=== PATIENT | female | born 1995 | race American Indian/Alaskan Native ===

== ENCOUNTER 2017-06-19 19:41 | Emergency (ER) | payer SELFPAY ==
[2017-06-19 20:07] VITALS: BP 103/56
[2017-06-19 20:32] LABS: Basophils # (Auto) 0.1 K/mm3 (0.0-0.1); Basophils % (Auto) 1.2 % (0.0-1.8); Eosinophils # (Auto) 0.1 K/mm3 (0.0-0.4); Eosinophils % (Auto) 1.5 % (0.0-4.3); Hematocrit 38.6 % (30.3-42.9); Hemoglobin 13.4 gm/dl (10.1-14.3); Lymphocytes # (Auto) 2.6 K/mm3 (1.2-5.4); Lymphocytes % (Auto) 39.3 % (13.4-35.0); Mean Corpuscular HGB Conc 35 % (30-34); Mean Corpuscular Hemoglobin 32 pg (28-32); Mean Corpuscular Volume 92 fl (79-97); Monocytes # (Auto) 0.4 K/mm3 (0.0-0.8); Monocytes % (Auto) 5.6 % (0.0-7.3); Platelet Count 380 K/mm3 (140-440); Red Cell Distribution Width 12.3 % (13.2-15.2)
[2017-06-19 20:40] LABS: Alanine Aminotransferase 12 units/L (7-56); Albumin 4.4 g/dL (3.9-5); BUN/Creatinine Ratio 20; Blood Urea Nitrogen 14 mg/dL (7-17); Calcium 9.1 mg/dL (8.4-10.2); Hemolysis Index 5
[2017-06-19 20:43] LABS: Bilirubin,Urine NEG (Negative); Blood,Urine SM (Negative); Color,Urine Yellow (Yellow); Mucus,Urine 3+ /HPF; Protein,Urine <15 mg/dL mg/dL (Negative)
== END 2017-06-19 21:30 | disposition left against medical advice (07) ==
LOC: ED 19:41
DX: R10.9 Unspecified abdominal pain (principal); Z53.21 Procedure and treatment not carried out due to patient leaving prior to being seen by health care provider
CPT/HCPCS: 36415; 80053; 81001; 82962; 85025

== ENCOUNTER 2017-06-21 11:44 | Emergency (ER) | payer OTHER ==
[2017-06-21 12:37] LABS: Basophils # (Auto) 0.1 K/mm3 (0.0-0.1); Basophils % (Auto) 1.1 % (0.0-1.8); Eosinophils # (Auto) 0.1 K/mm3 (0.0-0.4); Eosinophils % (Auto) 1.7 % (0.0-4.3); Hematocrit 41.3 % (30.3-42.9); Hemoglobin 13.8 gm/dl (10.1-14.3); Lymphocytes # (Auto) 1.9 K/mm3 (1.2-5.4); Lymphocytes % (Auto) 38.4 % (13.4-35.0); Mean Corpuscular HGB Conc 33 % (30-34); Mean Corpuscular Hemoglobin 32 pg (28-32); Mean Corpuscular Volume 95 fl (79-97); Monocytes # (Auto) 0.3 K/mm3 (0.0-0.8); Monocytes % (Auto) 5.1 % (0.0-7.3); Platelet Count 406 K/mm3 (140-440); Red Blood Count 4.37 M/mm3 (3.65-5.03); Red Cell Distribution Width 12.2 % (13.2-15.2)
--- NOTE | 2017-06-21 12:46 | Emergency Department Report ---
ED Female HPI - General Chief complaint: Vaginal Bleeding Stated complaint: VAGINAL BLEEDING Time Seen by Provider: 06/21/17 12:43 Source: patient Mode of arrival: Stretcher Limitations: No Limitations - History of Present Illness Initial comments: Patient is a 21-year-old female that presents to the emergency room via EMS for abdominal pain and bright red vaginal bleeding 6 days with clots. Patient states that this is not her. This is bleeding in between her periods. Patient denies fever and chills. Patient states he abdominal pain is intermittent and fluctuating in intensity. Patient states that she is not having any abdominal pain at this time however her pain has been as high as a 10 out of 10. Patient states the pain is worse with movement. Patient states the pain is better with rest. Patient denies the possibility of . MD Complaint: vaginal bleeding, pelvic pain -: Sudden, days(s) (for 6 days and worsening) Location: suprapubic Radiation: non-radiating Severity: severe Severity scale (0 -10): 10 Quality: sharp Consistency: intermittent Improves with: other Worsens with: movement Are you Now?: No Associated Symptoms: vaginal bleeding, abdominal pain - Related Data Sexually active: Yes Allergies Allergy/AdvReac Type Severity Reaction Status Date / Time cat dander Allergy Swelling Verified 06/19/17 20:00 ED Review of Systems ROS: Stated complaint: VAGINAL BLEEDING Other details as noted in HPI Comment: All other systems reviewed and negative Constitutional: denies: chills, fever Eyes: denies: eye pain, eye discharge, vision change ENT: denies: ear pain, throat pain Respiratory: denies: cough, shortness of breath, wheezing Cardiovascular: denies: chest pain, palpitations Endocrine: no symptoms reported Gastrointestinal: abdominal pain. denies: nausea, diarrhea Genitourinary: denies: urgency, dysuria, discharge Musculoskeletal: denies: back pain, joint swelling, arthralgia Skin: denies: rash, lesions Neurological: denies: headache, weakness, paresthesias Psychiatric: denies: anxiety, depression Hematological/Lymphatic: denies: easy bleeding, easy bruising ED Past Medical Hx - Past Medical History Previous Medical History?: Yes Hx Psychiatric Treatment: Yes (MDD, BIPOLAR ANXIETY DISORDER) Additional medical history: Anemia - Surgical History Past Surgical History?: No - Family History Family history: hypertension - Social History Smoking Status: Current Every Day Smoker Substance Use Type: None ED Physical Exam - General Limitations: No Limitations General appearance: alert, in no apparent distress - Head Head exam: Present: atraumatic, normocephalic - Eye Eye exam: Present: normal appearance - ENT ENT exam: Present: mucous membranes moist - Neck Neck exam: Present: normal inspection - Respiratory Respiratory exam: Present: normal lung sounds bilaterally. Absent: respiratory distress - Cardiovascular Cardiovascular Exam: Present: regular rate, normal rhythm. Absent: systolic murmur, diastolic murmur, rubs, gallop - GI/Abdominal GI/Abdominal exam: Present: soft, normal bowel sounds - Extremities Exam Extremities exam: Present: normal inspection - Back Exam Back exam: Present: normal inspection - Neurological Exam Neurological exam: Present: alert, oriented X3 - Psychiatric Psychiatric exam: Present: normal affect, normal mood - Skin Skin exam: Present: warm, dry, intact, normal color. Absent: rash ED Course Vital Signs 06/21/17 06/21/17 11:58 12:45 Temperature 98.4 F 98.4 F Pulse Rate 100 H 73 Respiratory 20 18 Rate Blood Pressure 111/65 Blood Pressure 110/68 [Right] O2 Sat by Pulse 99 100 Oximetry - Reevaluation(s) Reevaluation #1: All labs results discussed with patient. All labs unremarkable and a pelvic ultrasound unremarkable as well. Patient stable for discharge. Will discharge patient home with discharge instructions to follow up with primary care and her [employer] [employer]. Discussed the possibility of STDs patient. The plan is to going treat for gonorrhea and chlamydia while the tests are pending. 06/21/17 15:44 ED Medical Decision Making - Lab Data Result diagrams: 06/21/17 12:13 06/21/17 12:13 - Radiology Data Radiology results: report reviewed - Medical Decision Making Patient is stable for discharge. - Differential Diagnosis . uti. heavy cycle. ovarian cyst. Critical care attestation.: If time is entered above; I have spent that time in minutes in the direct care of this critically ill patient, excluding procedure time. ED Disposition Clinical Impression: Vaginal bleeding, Pelvic pain Disposition: DC-01 TO HOME OR SELFCARE Is pt being admited?: No Does the pt Need Aspirin: No Condition: Stable Instructions: Menstruation (ED) Additional Instructions: Patient to follow with GI and [facility] [employer] within 2-3 days. Patient to return to ER if condition worsens. Patient to increase water. Patient to start vitamins. Patient to follow up with primary care in 3-5 days. Patient states Tylenol when necessary Referrals: PRIMARY CARE,MD [Primary Care Provider] - 3-5 Days Time of Disposition: 16:13
[2017-06-21 12:48] VITALS: BP 110/68
[2017-06-21 13:17] LABS: Alanine Aminotransferase 10 units/L (7-56); Albumin 4.6 g/dL (3.9-5); BUN/Creatinine Ratio 20; Blood Urea Nitrogen 14 mg/dL (7-17); Calcium 9.4 mg/dL (8.4-10.2); Hemolysis Index 10
[2017-06-21 13:33] LABS: Bilirubin,Urine NEG (Negative); Blood,Urine LG (Negative); Color,Urine Yellow (Yellow); Mucus,Urine 2+ /HPF; Protein,Urine <15 mg/dL mg/dL (Negative); RBC,Urine < 1.0 /HPF (0.0-6.0)
--- NOTE | 2017-06-21 15:01 | Ultrasound Report ---
ULTRASOUND PELVIS COMPLETE - TRANSABDOMINAL AND TRANSVAGINAL: INDICATION: Pain, vaginal bleeding. COMPARISON: None similar at this institution. FINDINGS: Transabdominal and transvaginal pelvic sonography performed in this patient with LMP of 06/09/2017 suggests a retroflexed uterus estimated at 7.4 x 2.4 x 4.7 cm. Endometrial thickness estimated at 1.1 cm. No significant free fluid. Normal bilateral ovaries, estimated at 3.2 x 1.6 x 3.3 cm on the right and 3.5 x 1.6 x 2 cm on the left. CONCLUSION: No acute pelvic sonographic abnormality, as described. Thank you for the opportunity to participate in this patient's care.
[2017-06-21] MEDS ORDERED: ROCEPHIN IM ONE (16:15)
[2017-06-21] MEDS: ROCEPHIN IM ONE (16:55)
[2017-06-21] MEDS: XYLOCAINE 1% MPF 5 mL INFILTRATI ONE (16:55)
[2017-06-21] MEDS: ZITHROMAX PO ONE ×2 (16:55→17:06)
== END 2017-06-21 17:09 | disposition home or self-care (01) ==
LOC: ED 11:44
DX: N93.9 Abnormal uterine and vaginal bleeding, unspecified (principal); R10.2 Pelvic and perineal pain; F31.9 Bipolar disorder, unspecified; F41.9 Anxiety disorder, unspecified; F17.200 Nicotine dependence, unspecified, uncomplicated; Z91.09 Other allergy status, other than to drugs and biological substances
CPT/HCPCS: 36415; 76830; 76856; 80053; 81001; 84702; 85025; 86850; 86900; 86901; 87591; 96372; 99284; J0696

== ENCOUNTER 2017-06-22 00:16 | Emergency (ER) | payer MEDICAID, OTHER ==
[2017-06-22 02:27] LABS: Basophils # (Auto) 0.1 K/mm3 (0.0-0.1); Basophils % (Auto) 1.2 % (0.0-1.8); Eosinophils # (Auto) 0.2 K/mm3 (0.0-0.4); Eosinophils % (Auto) 2.2 % (0.0-4.3); Hematocrit 39.8 % (30.3-42.9); Hemoglobin 13.8 gm/dl (10.1-14.3); Lymphocytes % (Auto) 39.6 % (13.4-35.0); Mean Corpuscular HGB Conc 35 % (30-34); Mean Corpuscular Hemoglobin 32 pg (28-32); Mean Corpuscular Volume 92 fl (79-97); Monocytes # (Auto) 0.4 K/mm3 (0.0-0.8); Platelet Count 358 K/mm3 (140-440); Red Blood Count 4.33 M/mm3 (3.65-5.03); Red Cell Distribution Width 11.9 % (13.2-15.2)
[2017-06-22 02:45] LABS: BUN/Creatinine Ratio 23; Blood Urea Nitrogen 18 mg/dL (7-17); Calcium 9.2 mg/dL (8.4-10.2); Hemolysis Index 10
--- NOTE | 2017-06-22 04:03 | Emergency Department Report ---
HPI - General Chief Complaint: Psych Time Seen by Provider: 06/22/17 03:51 - HPI HPI: Room 9 The patient is a 21-year-old female presenting with a chief complaint of suicidal ideation. Patient states for 1.5 week she's had possible killing herself. Patient states she has not attempted to harm herself since she's had thoughts and she does not have a plan currently. Location: Mental state Duration: 1.5 weeks Quality: Suicidal Severity: Severe Modifying factors: [see above] Context: [see above] Mode of transportation: [not driving] ED Past Medical Hx - Past Medical History Previous Medical History?: Yes Hx Psychiatric Treatment: Yes (MDD, BIPOLAR ANXIETY DISORDER) Additional medical history: Anemia - Surgical History Past Surgical History?: No - Family History Family history: no significant - Social History Smoking Status: Current Every Day Smoker (1/7 per day) Substance Use Type: None (denies illicit drug use) ED Review of Systems ROS: Stated complaint: SUICIDAL THOUGHTS Other details as noted in HPI Psychiatric: suicidal thoughts Physical Exam - Physical Exam Vital Signs: Vital Signs 06/22/17 06/22/17 01:56 03:40 Temperature 98.4 F Pulse Rate 81 Respiratory 18 18 Rate Blood Pressure 110/52 O2 Sat by Pulse 100 Oximetry Physical Exam: GENERAL: The patient is well-developed well-nourished female lying on stretcher not appearing to be in acute distress. [] HEENT: Normocephalic. Atraumatic. Extraocular motions are intact. Patient has moist mucous membranes. NECK: Supple. Trachea midline CHEST/LUNGS: Clear to auscultation. There is no respiratory distress noted. HEART/CARDIOVASCULAR: Regular. There is no tachycardia. There is no gallop rub or murmur. ABDOMEN: Abdomen is soft, nontender. Patient has normal bowel sounds. There is no abdominal distention. SKIN: There is no rash. There is no edema. There is no diaphoresis. NEURO: The patient is awake, alert, and oriented. The patient is cooperative. The patient has normal speech MUSCULOSKELETAL: There is no evidence of acute injury. ED Course Vital Signs 06/22/17 06/22/17 01:56 03:40 Temperature 98.4 F Pulse Rate 81 Respiratory 18 18 Rate Blood Pressure 110/52 O2 Sat by Pulse 100 Oximetry ED Medical Decision Making - Lab Data Result diagrams: 06/22/17 02:15 06/22/17 02:15 Laboratory Tests 06/22/17 06/22/17 06/22/17 02:15 02:15 02:15 WBC RBC Hgb Hct MCV MCH MCHC RDW Plt Count Lymph % (Auto) [place] % (Auto) Eos % (Auto) Baso % (Auto) Lymph # [place] # Eos # Baso # Seg Neutrophils % Seg Neutrophils # Sodium 140 Potassium 3.7 Chloride 98.8 Carbon Dioxide 28 Anion Gap 17 BUN 18 H Creatinine 0.8 Estimated GFR > 60 BUN/Creatinine Ratio 23 Glucose 87 Calcium 9.2 HCG, Qual Salicylates < 0.3 L Acetaminophen < 5.0 L Plasma/Serum Alcohol 06/22/17 06/22/17 06/22/17 02:15 02:15 02:15 WBC 7.6 RBC 4.33 Hgb 13.8 Hct 39.8 MCV 92 MCH 32 MCHC 35 H RDW 11.9 L Plt Count 358 Lymph % (Auto) 39.6 H [place] % (Auto) 5.0 Eos % (Auto) 2.2 Baso % (Auto) 1.2 Lymph # 3.0 [place] # 0.4 Eos # 0.2 Baso # 0.1 Seg Neutrophils % 52.0 Seg Neutrophils # 3.9 Sodium Potassium Chloride Carbon Dioxide Anion Gap BUN Creatinine Estimated GFR BUN/Creatinine Ratio Glucose Calcium HCG, Qual Negative Salicylates Acetaminophen Plasma/Serum Alcohol < 0.01 - Differential Diagnosis suicidal ideation Critical care attestation.: If time is entered above; I have spent that time in minutes in the direct care of this critically ill patient, excluding procedure time. ED Disposition Clinical Impression: Suicidal ideation Disposition: DC/TX-65 PSY HOSP/PSY UNIT Is pt being admited?: No Does the pt Need Aspirin: No Condition: Serious Referrals: NICOLASA MIGUEL [Other] - 3-5 Days Time of Disposition: 04:03 (awaiting acceptance)
[2017-06-22 08:28] LABS: Bilirubin,Urine NEG (Negative); Blood,Urine MOD (Negative); Color,Urine Yellow (Yellow); Mucus,Urine 3+ /HPF
[2017-06-22 08:30] LABS: RBC,Urine > 182.0 /HPF (0.0-6.0)
[2017-06-22 08:38] LABS: Amphetamine Screen,Urine PRESUMPTIVE NEGATIVE; Benzodiazepines Screen,Urine PRESUMPTIVE NEGATIVE; Cocaine Screen,Urine PRESUMPTIVE NEGATIVE; Methadone Screen,Urine PRESUMPTIVE NEGATIVE; Opiate Screen,Urine PRESUMPTIVE NEGATIVE
[2017-06-22 09:11] LABS: Cannabinoid Screen,Urine PRESUMPTIVE POSITIVE
[2017-06-22] MEDS ORDERED: HABITROL TD ONE (11:00)
[2017-06-22] MEDS ORDERED: ATIVAN ONE (16:54)
[2017-06-22] MEDS ORDERED: HALDOL ONE (16:54)
[2017-06-22] MEDS ORDERED: ATIVAN IM ONE (16:57)
[2017-06-22] MEDS ORDERED: HALDOL IM ONE (17:00)
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
[2017-06-22 20:41] VITALS: BP 115/71
== END 2017-06-22 20:41 ==
LOC: ED 00:16
DX: F31.9 Bipolar disorder, unspecified (principal); F41.9 Anxiety disorder, unspecified
CPT/HCPCS: 36415; 80048; 80307; 81001; 84703; 85025; 96372; 99285; G0480; J1630; J2060; 80320

== ENCOUNTER 2021-11-19 22:04 | Emergency (ER) | payer MEDICAID ==
[2021-11-20] MEDS ORDERED: IBUPROFEN 600 MG TAB PO ONE (00:37)
--- NOTE | 2021-11-20 05:34 | Emergency Department Report ---
ED General Adult HPI - General Chief complaint: Dental/Oral Stated complaint: TOOTH PAIN Source: patient, EMS Mode of arrival: Wheelchair Limitations: No Limitations - History of Present Illness Initial comments: Patient is a 26-year-old -[place] female with a history of major depressive disorder and bipolar disorder presents to the ED with complaint of acute onset persistent painful swollen left maxillary gingiva and left maxillary premolar molar toothache for the last 3 days. Patient states that she has been taking [id number] medications with no relief. Patient states that the pain has been constant and persistent now she also has headache. Patient denies dizziness, syncope, traumatic injury, fever, chills, sore throat, nasal and sinus congestion, change in vision or neck pain, chest pain or shortness of breath. MD Complaint: left maxillary premolar and molar toothache; swollen gums -: days(s) (3) Location: mouth Radiation: non-radiation Severity scale (0 -10): 7 Quality: aching, sharp Consistency: constant Improves with: none Worsens with: eating Associated Symptoms: denies other symptoms, headaches. denies: confusion, cough, diaphoresis, fever/chills, loss of appetite, malaise, nausea/vomiting, seizure, shortness of breath, syncope, weakness Treatments Prior to Arrival: none - Related Data Previous Rx's Medication Instructions Recorded Last Taken Type Clindamycin [Clindamycin CAP] 300 mg PO Q8H #30 cap 11/20/21 Unknown Rx Ketorolac [Toradol] 10 mg PO Q6H PRN #20 tab 11/20/21 Unknown Rx traMADoL [Ultram] 50 mg PO Q6HR PRN #12 tablet 11/20/21 Unknown Rx Allergies Allergy/AdvReac Type Severity Reaction Status Date / Time cat dander Allergy Swelling Verified 06/19/17 20:00 ED Review of Systems ROS: Stated complaint: TOOTH PAIN Other details as noted in HPI Constitutional: denies: chills, fever Eyes: denies: eye pain, eye discharge, vision change ENT: dental pain (Left maxillary premolar molar tooth ache; swollen gingiva). denies: ear pain, throat pain Respiratory: denies: cough, shortness of breath, wheezing Cardiovascular: denies: chest pain, palpitations Endocrine: no symptoms reported Gastrointestinal: denies: abdominal pain, nausea, vomiting, diarrhea Genitourinary: denies: urgency, dysuria, discharge Musculoskeletal: denies: back pain, joint swelling, arthralgia Skin: denies: rash, lesions Neurological: headache. denies: weakness, paresthesias Psychiatric: denies: anxiety, depression Hematological/Lymphatic: denies: easy bleeding, easy bruising ED Past Medical Hx - Past Medical History Hx Psychiatric Treatment: Yes (MDD, BIPOLAR ANXIETY DISORDER) Additional medical history: Anemia - Social History Smoking Status: Current Every Day Smoker (1/7 per day) Substance Use Type: None (denies illicit drug use) - Medications Home Medications: Home Medications Medication Instructions Recorded Confirmed Last Taken Type Clindamycin [Clindamycin CAP] 300 mg PO Q8H #30 cap 11/20/21 Unknown Rx Ketorolac [Toradol] 10 mg PO Q6H PRN #20 tab 11/20/21 Unknown Rx traMADoL [Ultram] 50 mg PO Q6HR PRN #12 tablet 11/20/21 Unknown Rx ED Physical Exam - General Limitations: No Limitations General appearance: alert, in no apparent distress - Head Head exam: Present: atraumatic, normocephalic, normal inspection - Eye Eye exam: Present: normal appearance, PERRL, EOMI Pupils: Present: normal accommodation - ENT ENT exam: Present: mucous membranes moist, TM's normal bilaterally, normal external ear exam, other (Swollen, tender left maxillary gingiva; palpable left maxillary premolar and molar tooth tenderness) - Neck Neck exam: Present: normal inspection, full ROM. Absent: tenderness - Respiratory Respiratory exam: Present: normal lung sounds bilaterally. Absent: respiratory distress, wheezes, chest wall tenderness, accessory muscle use, decreased breath sounds, prolonged expiratory - Cardiovascular Cardiovascular Exam: Present: regular rate, normal rhythm, normal heart sounds. Absent: systolic murmur, diastolic murmur, rubs, gallop - GI/Abdominal GI/Abdominal exam: Present: soft, normal bowel sounds. Absent: tenderness, guarding, rebound, hyperactive bowel sounds, hypoactive bowel sounds, organomegaly, mass - Extremities Exam Extremities exam: Present: normal inspection, full ROM, normal capillary refill. Absent: tenderness, pedal edema, joint swelling - Back Exam Back exam: Present: normal inspection, full ROM. Absent: tenderness, CVA tenderness (R), CVA tenderness (L), muscle spasm, paraspinal tenderness, vertebral tenderness - Neurological Exam Neurological exam: Present: alert, oriented X3, CN II-XII intact, normal gait, reflexes normal - Psychiatric Psychiatric exam: Present: normal affect, normal mood - Skin Skin exam: Present: warm, dry, intact, normal color. Absent: rash ED Course Vital Signs 11/19/21 22:13 Temperature 98.7 F Pulse Rate 84 Respiratory 18 Rate Blood Pressure 140/90 [Right] O2 Sat by Pulse 99 Oximetry ED Medical Decision Making - Medical Decision Making This is a 26-year-old -[place] female with a history of major depressive disorder and bipolar disorder presents to the ED with complaint of acute onset persistent painful swollen left maxillary gingiva and left maxillary premolar molar toothache for the last 3 days. Patient states that she has been taking [id number] medications with no relief. Patient states that the pain has been constant and persistent now she also has headache. In the ED, patient is alert and oriented x3 and is not in any distress. Patient was treated for pain in the ED. Patient was discharged home on pain medication and antibiotics and advised to follow-up with her primary care physician in 7 to 10 days for reevaluation or return to the ED immediately if symptoms get worse. - Differential Diagnosis Dental abscess; dental caries; gingivitis Critical care attestation.: If time is entered above; I have spent that time in minutes in the direct care of this critically ill patient, excluding procedure time. ED Disposition Clinical Impression: Dental abscess, Dental caries, Acute gingivitis Disposition: HOME / SELF CARE / HOMELESS Is pt being admited?: No Does the pt Need Aspirin: No Condition: Stable Instructions: Dental Abscess, [id number], Trench Mouth, Dental Extraction, Care After, [id number] Additional Instructions: Take medication with food, drink plenty of fluids, follow-up with your primary care physician or dentist in 7 to 10 days for reevaluation or return to the ED immediately if symptoms get worse. Prescriptions: Clindamycin [Clindamycin CAP] 300 mg PO Q8H #30 cap Ketorolac [Toradol] 10 mg PO Q6H PRN #20 tab PRN Reason: Pain traMADoL [Ultram] 50 mg PO Q6HR PRN #12 tablet PRN Reason: Pain Referrals: [facility] [Outside] - 7-10 days Forms: Work/School Release Form(ED) Time of Disposition: 05:33 Print Language: SLOVENIAN
[2021-11-20] MEDS ORDERED: ACETAMINOPHEN 500 MG TAB PO ONE (06:02)
[2021-11-20 06:48] VITALS: BP 134/94
== END 2021-11-20 06:57 | disposition home or self-care (01) ==
LOC: ED 22:04
DX: K05.00 Acute gingivitis, plaque induced (principal); K04.7 Periapical abscess without sinus; K02.9 Dental caries, unspecified; F41.9 Anxiety disorder, unspecified; F17.200 Nicotine dependence, unspecified, uncomplicated; Z91.09 Other allergy status, other than to drugs and biological substances; Z79.899 Other long term (current) drug therapy
CPT/HCPCS: 99283